=== PATIENT | female | born 1955 | race Caucasian/White ===

== ENCOUNTER 2021-03-26 12:21 | Emergency (ER) | payer OTHER ==
[2021-03-26 12:31] VITALS: BP 184/87; PULSE 90; RESP 18; TEMP 98.1
--- NOTE | 2021-03-26 13:07 | ED ---
General Adult HPI - General Chief complaint: Recheck/Abnormal Lab/Rx Stated complaint: Covid Test Time Seen by Provider: 03/26/21 12:26 Source: patient, RN notes reviewed Mode of arrival: ambulatory Limitations: no limitations - History of Present Illness Initial comments: 65-year-old female presents emergency room with chief complaint of needing COVID-19 testing to return to [place]. Patient states she chemo to drop her daughter. Patient is asymptomatic. Denies fevers chills cough congestion nausea vomiting diarrhea constipation. - Related Data Allergies Allergy/AdvReac Type Severity Reaction Status Date / Time No Known Allergies Allergy Verified 03/26/21 12:31 Review of Systems ROS Statement: Those systems with pertinent positive or pertinent negative responses have been documented in the HPI. ROS Other: All systems not noted in ROS Statement are negative. Past Medical History Past Medical History: No Reported History History of Any Multi-Drug Resistant Organisms: None Reported Past Surgical History: No Surgical Hx Reported Past Psychological History: No Psychological Hx Reported Smoking Status: Never smoker Past Alcohol Use History: None Reported Past Drug Use History: None Reported General Exam Limitations: no limitations General appearance: alert, in no apparent distress Respiratory exam: Present: normal lung sounds bilaterally. Absent: respiratory distress, wheezes, rales, rhonchi, stridor Cardiovascular Exam: Present: regular rate, normal rhythm, normal heart sounds. Absent: systolic murmur, diastolic murmur, rubs, gallop, clicks Course Vital Signs 03/26/21 12:27 Temperature 98.1 F Pulse Rate 90 Respiratory 18 Rate Blood Pressure 184/87 O2 Sat by Pulse 97 Oximetry Medical Decision Making - Medical Decision Making Testing is negative. - Lab Data Lab Results 03/26/21 Range/Units 12:33 Coronavirus (PCR) Not Detected (Not Detectd) Disposition Clinical Impression: Encounter for laboratory testing for COVID-19 virus Disposition: HOME SELF-CARE Condition: Stable Additional Instructions: Your COVID-19 PCR test is negative. Please return to the Emergency Department if symptoms worsen or any other concerns. Is patient prescribed a controlled substance at d/c from ED?: No Referrals: None,Stated [Primary Care Provider] - 1-2 days
== END 2021-03-26 13:18 | disposition home or self-care (01) ==
LOC: EC 12:21
DX: Z20.822 Contact with and (suspected) exposure to COVID-19 (principal)
CPT/HCPCS: 87635; 99282

== ENCOUNTER 2021-05-03 09:23 | Emergency (ER) | payer SELFPAY ==
[2021-05-03 09:29] VITALS: BP 161/88; PULSE 71; RESP 18; TEMP 98.3
--- NOTE | 2021-05-03 10:19 | ED ---
Recheck HPI - General Chief Complaint: Recheck/Abnormal Lab/Rx Stated Complaint: needs covid test Time Seen by Provider: 05/03/21 09:29 Source: patient Mode of arrival: ambulatory Limitations: no limitations - History of Present Illness Initial Comments: Patient is a 65-year-old female here requesting a Covid test for reentry back into [place]. She has no symptoms, no complaints today. No recent fevers or chills, no cough. She is no further complaints. - Related Data Allergies Allergy/AdvReac Type Severity Reaction Status Date / Time No Known Allergies Allergy Verified 05/03/21 09:29 Review of Systems ROS Statement: Those systems with pertinent positive or pertinent negative responses have been documented in the HPI. ROS Other: All systems not noted in ROS Statement are negative. Past Medical History Past Medical History: Hypertension History of Any Multi-Drug Resistant Organisms: None Reported Past Surgical History: No Surgical Hx Reported Past Psychological History: No Psychological Hx Reported Smoking Status: Never smoker Past Alcohol Use History: None Reported Past Drug Use History: None Reported General Exam - General Exam Comments Initial Comments: GENERAL: Patient is well-developed and well-nourished. Patient is nontoxic and in no acute distress. HEAD: Atraumatic, normocephalic. EYES: Pupils equal round and reactive to light, extraocular movements intact, sclera anicteric, conjunctiva are normal. Eyelids were unremarkable. ENT: Moist mucous membranes. NECK: Normal range of motion, supple without lymphadenopathy or JVD. LUNGS: Unlabored respirations. Breath sounds clear to auscultation bilaterally and equal. No wheezes rales or rhonchi. HEART: Regular rate and rhythm without murmurs, rubs or gallops. MUSCULOSKELETAL: Normal extremities with adequate strength and normal range of motion, no pitting or edema. No clubbing or cyanosis. NEUROLOGICAL: Patient is alert and oriented x 3. SKIN: Warm, Dry, normal turgor, no rashes or lesions noted. Limitations: no limitations Course Vital Signs 05/03/21 09:25 Temperature 98.3 F Pulse Rate 71 Respiratory 18 Rate Blood Pressure 161/88 O2 Sat by Pulse 96 Oximetry Medical Decision Making - Medical Decision Making Patient is a 65-year-old female here requesting a Covid test for reentry back into [place]. She has no symptoms, no complaints. Test is negative. Patient is stable for discharge. - Lab Data Lab Results 05/03/21 Range/Units 09:46 Coronavirus (PCR) Not Detected (Not Detectd) Disposition Clinical Impression: Lab test negative for COVID-19 virus Disposition: HOME SELF-CARE Condition: Stable Instructions (If sedation given, give patient instructions): Normal Exam (ED) Additional Instructions: Please return to the Emergency Department if symptoms worsen or any other concerns. Covid test is negative. Is patient prescribed a controlled substance at d/c from ED?: No Referrals: None,Stated [Primary Care Provider] - 1-2 days Time of Disposition: 10:19
== END 2021-05-03 10:54 | disposition home or self-care (01) ==
LOC: EC 09:23
DX: Z20.822 Contact with and (suspected) exposure to COVID-19 (principal)
CPT/HCPCS: 87635; 99282